=== PATIENT | female | born 1965 | race Two or more races ===

== ENCOUNTER 2023-05-29 10:54 | Emergency (ER) | payer OTHER ==
[~2023-05-29] VITALS: Ht 160 cm; Wt 47.6 kg
[2023-05-29 11:52] LABS: HEMATOCRIT 36.2 % (36.0-45.00); HEMOGLOBIN 12.1 g/dL (12.0-15.00); MEAN CELL VOLUME 92.9 fL (80.00-100.00); MEAN CORPUSCULAR HGB CONC 33.4 g/dl (32.0-36.0); PLATELET COUNT 207 K/uL (150-450); RED CELL DISTRIBUTION WIDTH 12.7 % (11.5-14.5)
[2023-05-29 12:28] LABS: CREATININE SERUM 0.57 mg/dL (0.55-1.02); GFR 108.94; POTASSIUM 3.78 mEq/L (3.5-5.1)
== END 2023-05-29 14:17 | disposition home or self-care (01) ==
LOC: ER 10:55
PROVIDERS: General Practice
DX: H81.10 Benign paroxysmal vertigo, unspecified ear (principal)